=== PATIENT | male | born 1990 | race Caucasian/White ===

== ENCOUNTER 2018-10-30 16:33 | Emergency (ER) | payer MEDICAID ==
[~2018-10-30] VITALS: Ht 190.5 cm; Wt 88.5 kg
--- NOTE | 2018-10-30 16:42 | NUR ---
ED Nurse Note: PT WALKED IN TO ER TODAY FROM HOME. AXO4. PT C/O SORE THROAT, HEADACHE, FEVER, AND BODY ACHES X 3 DAYS AGO. PT DENIES COUGH, NAUEA, OR VOMITING. PT DENIES PAIN AT REST BUT STATES PAIN COMES WITH EATING/SWALLOWING. PT RATES PAIN WITH SWALLOWING 8/10.
[2018-10-30 16:44] VITALS: BP 126/74
[2018-10-30] MEDS ORDERED: AUGMENTIN 875-1 EAC1 ORAL (17:00)
[2018-10-30] MEDS ORDERED: IBUPROFEN600 MG ORAL (17:00)
--- NOTE | 2018-10-30 17:00 | Emergency Room Report ---
History of Present Illness General Chief Complaint: Sore Throat Source: Patient Present Illness HPI 28-year-old male with no signal past medical history here complaining of 3 days of 10 out of 10 sore throat, and chills. Patient denies cough and congestion, rhinorrhea, shortness of breath, wheezing, and coughing. Patient has taken over -the-counter ibuprofen and NyQuil for symptom relief. Denies pain radiation, denies history of smoking, sick contact. Denies abdominal pain, nausea vomiting , urinary symptoms Allergies: Coded Allergies: No Known Allergies (Unverified , 10/30/18) Patient History Past Medical History: see triage record Past Surgical History: unable to obtain Pertinent Family History: none Immunizations: UTD Reviewed Nursing Documentation: PMH: Agreed; PSxH: Agreed Nursing Documentation-PMH Past Medical History: No Stated History Review of Systems All Other Systems: negative except mentioned in HPI Physical Exam Vital Signs Date Time Temp Pulse Resp B/P (MAP) Pulse Ox O2 Delivery O2 Flow Rate FiO2 10/30/18 16:38 100.0 100 20 131/71 (91) 97 Room Air Sp02 EP Interpretation: reviewed, normal General Appearance: normal inspection, well appearing, no apparent distress, alert Head: normocephalic, atraumatic Eyes: bilateral eye normal inspection, bilateral eye PERRL ENT: TMs + canals normal, uvula midline, tonsillar swelling, pharyngeal erythema, tonsillar exudate Neck: full range of motion, other - anterior cervical lymphadenopathy Respiratory: normal inspection, chest non-tender, lungs clear, no rhonchi, no wheezing Cardiovascular #1: normal inspection, normal peripheral pulses, regular rate, rhythm, no murmur, normal capillary refill Gastrointestinal: normal inspection, normal bowel sounds, non tender, soft Genitourinary: no CVA tenderness Musculoskeletal: normal inspection, back normal Neurologic: normal inspection, alert Psychiatric: normal inspection, judgement/insight normal Skin: normal inspection, normal color, no rash Lymphatic: adenopathy - Anterior cervical Medical Decision Making PA Attestation All my diagnosis and treatment plans were reviewed ad discussed with my supervising physician Dr. Duggan Diagnostic Impression: Primary Impression: Strep pharyngitis ER Course 28-year-old male with no signal past medical history here complaining of 3 days of 10 out of 10 sore throat, and chills. Patient denies cough and congestion, rhinorrhea, shortness of breath, wheezing, and coughing. Patient has taken over -the-counter ibuprofen and NyQuil for symptom relief. Denies pain radiation, denies history of smoking, sick contact. Denies abdominal pain, nausea vomiting , urinary symptoms Ddx considered but are not limited to: strep pharyngitis, URI, tonsilitis, peritonsillar absacess, influneza Vital signs: are WNL, pt. is afebrile H&PE are most consistent with: Strep pharyngitis ORDERS: Augmentin, ibuprofen ED INTERVENTIONS: None required at this time. DISCHARGE: At this time pt. is stable for d/c to home. Will provide printed patient care instructions, and any necessary prescriptions. Care plan and follow up instructions have been discussed with the patient prior to discharge. Last Vital Signs Date Time Temp Pulse Resp B/P (MAP) Pulse Ox O2 Delivery O2 Flow Rate FiO2 10/30/18 16:44 99.8 92 18 126/74 99 Room Air Disposition: HOME, SELF-CARE Condition: Stable Scripts Ibuprofen* (MOTRIN*) 600 Mg Tablet 600 MG ORAL Q6H PRN for For Pain, #30 TAB 0 Refills Prov: Reji Lewis 10/30/18 Amoxicillin/Potassium Clav 875-125* (AUGMENTIN 875-125 TABLET*) 1 Each Tablet 1 TAB ORAL TWICE A DAY for 10 Days, #20 TAB Prov: Reji Lewis 10/30/18 Patient Instructions: Strep Throat Reji Lewis Oct 30, 2018 17:00
--- NOTE | 2018-10-30 17:11 | NUR ---
ED Nurse Note: PT SITTING PEACEFULLY IN CHAIR IN NAD. AOX4. PRESCRIPTIONS AND DISCHARGE PAPERWORK EXPLAINED TO PT. PT VERBALIZES UNDERSTANDING ALL QUESTIONS ANSWERED. PRESCRIPTIONS AND DISCHARGE PAPERWORK GIVEN TO PT AND ID WRISTBAND REMOVED. PT WALKED OUT OF ER WITH STEADY GAIT AND ALL BELONGINGS.
[2018-10-30 17:12] VITALS: BP 120/72
== END 2018-10-30 17:11 | disposition home or self-care (01) ==
LOC: EMR 16:55
DX: J02.0 Streptococcal pharyngitis (principal)
CPT/HCPCS: 99282

== ENCOUNTER 2018-11-29 12:10 | Emergency (ER) | payer MEDICAID ==
[~2018-11-29] VITALS: Ht 190.5 cm; Wt 86.2 kg
[~2018-11-29 12:10] MED LIST: AUGMENTIN 875-1 EAC1 ORAL; IBUPROFEN600 MG ORAL
[2018-11-29 12:24] VITALS: BP 108/64
[2018-11-29] MEDS ORDERED: NKM (12:25)
--- NOTE | 2018-11-29 12:41 | NUR ---
ED Nurse Note: Pt. AAOx4. Ambulatory. c/o sore throat x 3 days; reports no fever or chills.
--- NOTE | 2018-11-29 13:12 | Emergency Room Report ---
History of Present Illness General Chief Complaint: Sore Throat Source: Patient Present Illness HPI 28-year-old male presents to the emergency department complaining of 5 out of 10 severity persistent sore throat x3 days with fevers and chills. Patient reports that his fevers have been responding well to 600 mg ibuprofen which he last took 2 hours prior to arrival. Denies ear pain, lethargy, neck pain/ stiffness, irritability, photophobia dehydration, N/V/D. Denies Cp, Palpitations , LOC, AMS, seizures, paresthesias, or changes in Hearing or vision, no Sudden severe BEVERLY. Denies hx of smoking, asthma or COPD. Allergies: Coded Allergies: No Known Allergies (Unverified , 10/30/18) Patient History Past Medical History: see triage record Past Surgical History: none Pertinent Family History: none Reviewed Nursing Documentation: PMH: Agreed; PSxH: Agreed Nursing Documentation-PMH Past Medical History: No Stated History Review of Systems All Other Systems: negative except mentioned in HPI Physical Exam Vital Signs Date Time Temp Pulse Resp B/P (MAP) Pulse Ox O2 Delivery O2 Flow Rate FiO2 11/29/18 12:24 98.4 67 16 108/64 (79) 97 Room Air Sp02 EP Interpretation: reviewed, normal General Appearance: no apparent distress, alert, GCS 15, non-toxic Head: normocephalic, atraumatic Eyes: bilateral eye normal inspection, bilateral eye PERRL ENT: hearing grossly normal, normal voice, TMs + canals normal, uvula midline, tonsillar swelling, pharyngeal erythema, tonsillar exudate Neck: full range of motion Respiratory: lungs clear, normal breath sounds, speaking full sentences Cardiovascular #1: regular rate, rhythm Musculoskeletal: back normal, gait/station normal, normal range of motion, non- tender Neurologic: alert, oriented x3, responsive, motor strength/tone normal, sensory intact, speech normal, grossly normal Psychiatric: judgement/insight normal Lymphatic: no adenopathy Medical Decision Making PA Attestation Dr. Nicholas is my supervising Physician whom patient management has been discussed with. Diagnostic Impression: Primary Impression: Pharyngitis, acute Qualified Codes: J02.0 - Streptococcal pharyngitis ER Course 28-year-old male presents to the emergency department complaining of 5 out of 10 severity persistent sore throat x3 days with fevers and chills. Patient reports that his fevers have been responding well to 600 mg ibuprofen which he last took 2 hours prior to arrival. Denies ear pain, lethargy, neck pain/ stiffness, irritability, photophobia dehydration, N/V/D. Denies Cp, Palpitations , LOC, AMS, seizures, paresthesias, or changes in Hearing or vision, no Sudden severe BEVERLY. Denies hx of smoking, asthma or COPD. Ddx considered but are not limited to: pharyngitis, strep, [employer], ludwigs angina, URI Vital signs: are WNL, pt. is afebrile H&PE are most consistent with: pharyngitis presumed strep. ORDERS: None required at this time as the diagnosis is clinical ED INTERVENTIONS: none required at this time. DISCHARGE: At this time pt. is stable for d/c to home. Will provide printed patient care instructions, and any necessary prescriptions. Care plan and follow up instructions have been discussed with the patient prior to discharge. Last Vital Signs Date Time Temp Pulse Resp B/P (MAP) Pulse Ox O2 Delivery O2 Flow Rate FiO2 11/29/18 12:24 98.4 67 16 108/64 97 Room Air Disposition: HOME, SELF-CARE Condition: Stable Referrals: [facility],REFERRING (PCP) Patient Instructions: Strep Throat Additional Instructions: Take medications as directed. Follow up with a Primary Care Provider in 3-5 days, even if your symptoms have resolved. --Please review list of primary care clinics, if you do not already have a primary care provider Return sooner to ED if new symptoms occur, or current symptoms become worse. - Please note that this Emergency Department Report was dictated using [employer] science research assistant technology software, occasionally this can lead to erroneous entry secondary to interpretation by the dictation equipment. Vy Mckeon Nov 29, 2018 13:12
[2018-11-29] MEDS ORDERED: LIDOCAINE VISC100 ML ORAL (13:13)
[2018-11-29] MEDS ORDERED: AMOX TR-K CLV1 EAC2 ORAL (13:13)
[2018-11-29] MEDS ORDERED: TYLENOL EXTRA500 MG ORAL (13:13)
[2018-11-29 13:25] VITALS: BP 112/69
--- NOTE | 2018-11-29 13:25 | NUR ---
ER DISCHARGE NOTE: Patient is cleared to be discharged per ERMD, pt is aox4, on room air, with stable vital signs. pt was given dc and prescription instructions, pt was able to verbalize understanding, pt id band removed. pt is able to ambulate with steady gait. pt took all belongings.
== END 2018-11-29 13:25 | disposition home or self-care (01) ==
LOC: EMR 13:03
DX: J02.0 Streptococcal pharyngitis (principal)
CPT/HCPCS: 99281

== ENCOUNTER 2019-03-08 18:37 | Emergency (ER) | payer MEDICAID ==
[~2019-03-08] VITALS: Ht 190.5 cm; Wt 90.7 kg
[~2019-03-08 18:37] MED LIST changes: +AMOX TR-K CLV1 EAC2 ORAL; +LIDOCAINE VISC100 ML ORAL; +NKM; +TYLENOL EXTRA500 MG ORAL
--- NOTE | 2019-03-08 18:47 | NUR ---
ED Nurse Note: Pt walked in to ED c/o pain on right 3rd toe with bruising, no open wound noted. Pt aox4, VSS, no distress noted. Per patient, a stool fell on his right foot.
--- NOTE | 2019-03-08 18:54 | NUR ---
ED Nurse Note: ERMD at bedside
--- NOTE | 2019-03-08 19:02 | NUR ---
HAND-OFF: Report given to LINDA Graham.
--- NOTE | 2019-03-08 19:03 | NUR ---
ED Nurse Note: Received report from Kate MCKEON. Pt alert and oriented. No SOB. Breathing even and unlabored. VSS.
--- NOTE | 2019-03-08 19:10 | NUR ---
ED Nurse Note: Xray done at bedside.
[2019-03-08] MEDS ORDERED: IBUPROFEN600 MG ORAL (19:56)
[2019-03-08 20:02] VITALS: BP 109/66
--- NOTE | 2019-03-08 20:02 | NUR ---
ED Nurse Note: Pt cleared by ERMD for discharge. DC instructions/prescription was given and explained to pt and verbalized understanding of teachings. All medical deviecs such as ID band removed. Pt is AAO x4, ambulatory and left with all personal belongings.
--- NOTE | 2019-03-08 20:11 | Diagnostic Imaging Report ---
EXAM: XR Right Foot Complete, 3 or More Views CLINICAL HISTORY: PAIN TECHNIQUE: Frontal, lateral and oblique views of the right foot. COMPARISON: No relevant prior studies available. FINDINGS: Bones joints: No fracture or malalignment. Joint spaces are preserved. Soft tissues: Unremarkable. No radiopaque foreign body. Other findings: Bipartite medial hallux sesamoid. IMPRESSION: No fracture or malalignment.
--- NOTE | 2019-03-08 22:45 | Emergency Room Report ---
History of Present Illness General Chief Complaint: Lower Extremity Injury Source: Patient Present Illness HPI 28-year-old male presents ED for evaluation. Complaining of bruising and pain to the right middle toe. States that today at bench fell on top of his foot. Notes bruising and swelling to the right middle toe. Throbbing, 5 out of 10, nonradiating. Denies any other injuries. Is able to bear weight. No other aggravating relieving factors. Denies any other associated symptoms Allergies: Coded Allergies: No Known Allergies (Unverified , 10/30/18) Patient History Past Medical History: none Past Surgical History: none Pertinent Family History: none Social History: Denies: smoking, alcohol use, drug use Immunizations: UTD Reviewed Nursing Documentation: PMH: Agreed; PSxH: Agreed Nursing Documentation-PMH Past Medical History: No Stated History Review of Systems All Other Systems: negative except mentioned in HPI Physical Exam Vital Signs Date Time Temp Pulse Resp B/P (MAP) Pulse Ox O2 Delivery O2 Flow Rate FiO2 03/08/19 18:41 97.9 68 18 109/66 (80) 96 Room Air Sp02 EP Interpretation: reviewed, normal General Appearance: no apparent distress, alert, GCS 15, non-toxic Head: normocephalic Eyes: bilateral eye normal inspection, bilateral eye PERRL ENT: normal ENT inspection Neck: normal inspection Respiratory: normal inspection Cardiovascular #1: normal inspection Gastrointestinal: normal inspection Rectal: deferred Genitourinary: no CVA tenderness Musculoskeletal: tender - bruising/TTP R middle toe Neurologic: alert, oriented x3, responsive, motor strength/tone normal, sensory intact, speech normal Psychiatric: normal inspection Skin: no rash Lymphatic: normal inspection Medical Decision Making Diagnostic Impression: Primary Impression: Toe contusion Qualified Codes: S90.121A - Contusion of right lesser toe(s) without damage to nail, initial encounter ER Course Hospital Course 28 yo M presents to ED c/o R middle toe pain Differential diagnoses include: Fracture, dislocation, sprain, contusion Clinical course Patient placed on stretcher. After initial history and physical, I ordered xrays R foot. patient declined pain meds Xrays prelim read shows no acute fracture/dislocation. Discussed findings with patient. Waldo taped for splinting. Safe for discharge for close outpatient follow-up Diagnosis - toe contusion Stable and discharged to home with prescription for Motrin. apply ice, keep elevated. weight bear as tolerated. Followup with PMD. Return to ED if symptoms recur or worsen Other X-Ray Diagnostic Results Other X-Ray Diagnostic Results : X-Ray ordered: R foot # of Views/Limited Vs Complete: 3 View Indication: Pain EP Interpretation: Yes Interpretation: no dislocation, no soft tissue swelling, no fractures Impression: No acute disease Electronically Signed by: Electronically signed by Joon Nicholas MD Last Vital Signs Date Time Temp Pulse Resp B/P (MAP) Pulse Ox O2 Delivery O2 Flow Rate FiO2 03/08/19 20:02 97.9 80 18 109/66 96 Room Air Status: improved Disposition: HOME, SELF-CARE Condition: Stable Scripts Ibuprofen* (MOTRIN*) 600 Mg Tablet 600 MG ORAL Q8H PRN for For Pain, #30 TAB 0 Refills Prov: Joon Nicholas MD 03/08/19 Referrals: [facility],REFERR[facility] (PCP) Patient Instructions: Foot Contusion, [id number] Joon Nicholas MD Mar 08, 2019 22:45
== END 2019-03-08 20:02 | disposition home or self-care (01) ==
LOC: EMR 19:42
DX: S90.121A Contusion of right lesser toe(s) without damage to nail, initial encounter (principal); W20.8XXA Other cause of strike by thrown, projected or falling object, initial encounter; Y92.9 Unspecified place or not applicable
CPT/HCPCS: 73630; Z7502; 99283